=== PATIENT | male | born 1950 | race Caucasian/White ===

== ENCOUNTER 2021-06-06 19:57 | Emergency (ER) | payer OTHER ==
[~2021-06-06] VITALS: Ht 182.9 cm; Wt 63.7 kg
[2021-06-06 20:01] VITALS: BP 136/80
[2021-06-06] MEDS ORDERED: proparacaine 0.5% ophthalmic drops 15ml EACHEYE ONE (21:20)
[2021-06-06] MEDS ORDERED: cyclopentolate 1% 2ml ophthalmic solution LEFTEYE ONE (21:20)
== END 2021-06-07 00:26 | disposition home or self-care (01) ==
LOC: ER 19:58
DX: H43.12 Vitreous hemorrhage, left eye (principal); H43.392 Other vitreous opacities, left eye; F17.200 Nicotine dependence, unspecified, uncomplicated
CPT/HCPCS: 99283

== ENCOUNTER 2021-12-20 16:02 | Emergency (ER) | payer MEDICARE, MEDICAID ==
[~2021-12-20] VITALS: Ht 182.9 cm; Wt 68.0 kg
[2021-12-20 16:35] VITALS: BP 169/91
[2021-12-20] MEDS ORDERED: AMOX-117 PO (16:42)
== END 2021-12-20 17:01 | disposition home or self-care (01) ==
LOC: ER 16:02
DX: H66.92 Otitis media, unspecified, left ear (principal); H92.02 Otalgia, left ear; Z79.2 Long term (current) use of antibiotics
CPT/HCPCS: 99283

== ENCOUNTER 2022-01-03 15:43 | Emergency (ER) | payer MEDICARE, MEDICAID ==
[~2022-01-03] VITALS: Ht 182.9 cm; Wt 68.0 kg
[2022-01-03 16:39] VITALS: BP 160/93
[2022-01-03] MEDS ORDERED: neomy sulf/polymyx B sulf/HC 10ml otic suspension RIGHT EAR ONE (21:15)
== END 2022-01-03 21:45 | disposition home or self-care (01) ==
LOC: ER 15:43
DX: H60.91 Unspecified otitis externa, right ear (principal); H92.01 Otalgia, right ear; R09.89 Other specified symptoms and signs involving the circulatory and respiratory systems
CPT/HCPCS: 99283

== ENCOUNTER 2022-02-02 17:07 | Emergency (ER) | payer MEDICARE, MEDICAID ==
[~2022-02-02] VITALS: Ht 182.9 cm; Wt 67.7 kg
[2022-02-02 17:26] VITALS: BP 152/83
[2022-02-02] MEDS ORDERED: amox tr/potassium clavulanate 875/125mg TAB PO ONE (19:25)
[2022-02-02] MEDS ORDERED: Cipro HC otic suspension 10ML bottle LEFT EAR SCH (19:25)
[2022-02-02] MEDS ORDERED: AMOX-117 PO (19:31)
== END 2022-02-02 20:14 | disposition home or self-care (01) ==
LOC: ER 17:07
DX: H60.92 Unspecified otitis externa, left ear (principal); Z79.899 Other long term (current) drug therapy
CPT/HCPCS: 99283